=== PATIENT | female | born 1985 | race Two or more races ===

== ENCOUNTER 2025-03-14 18:25 | Emergency (ER) | payer OTHER ==
[~2025-03-14] VITALS: Ht 167.6 cm; Wt 58.9 kg
[2025-03-14 18:54] VITALS: BP 124/84; PULSE 92; RESP 17; TEMP 98.9; O2SAT 99
[2025-03-14] MEDS: cefTRIAXone SOD 1,000 MG VL IM ONE (19:18)
[2025-03-14] MEDS ORDERED: DOXY100C4 PO (19:21)
--- NOTE | 2025-03-14 19:21 | ED.PDOC ---
History of Present Illness(SKN HPI Comments 39-year-old female presents to the ED chief complaint right-sided facial abscess x6 days. Patient states last night she tried to pop it and let it drain she notes increasing swelling and pain. Denies fever, chills, nausea or vomiting. 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 Information Source: Patient Mode of Arrival: Ambulatory All Other Systems: Reviewed and Negative (See HPI) Physical Exam General Appearance: No Apparent Distress, Normal HEENT: Normal ENT Inspection, Pharynx Normal, TMs Normal Neck: Full Range of Motion, Non-Tender Respiratory: Lungs Clear, No Respiratory Distress, Normal Breath Sounds Cardiovascular: No Murmur, Normal Peripheral Pulses, Regular Rate/Rhythm Breast Exam: Deferred Gastrointestinal: Non Tender, Soft Genitalia: Deferred Pelvic: Deferred Rectal: Deferred Extremities: Normal capillary refill, Normal range of motion, Non-tender Musculoskeletal : Apperance: Normal Neurologic: Alert, No Motor Deficits, Normal Affect, Normal Mood, No Sensory Deficits Cerebellar Function: Normal Reflexes: NOT DONE Skin: Dry, Normal Color, Warm, Wounds (Approximate golf ball sized abscess to right temporal area with surrounding erythema, fluctuance, center puncture wound with no noted drainage warmth to touch no noted streaking) Lymphatic: No Adenopathy Was a procedure done? Was a procedure done?: Yes Sedation Sedation?: No Informed consent obtained: Yes Incision and Drainage Incision and Drainage: Abscess Location Right side of face temporal area Anesthetic: Lidocaine with Epi Preparation: Betadine Incision and Wound: Pus, Blood Informed consent obtained: Yes Risks/benefits/alt described: Yes Notes Process drained with 18 gauge needle patient tolerated rated well with minimal blood loss. Differential Diagnosis (INTG) Differential Diagnosis: Cellulitis, Hematoma, Insect Envenomation, Puncture Wound Differential Diagnosis: Abscess X-Ray, Labs, Meds, VS Vital Signs Date Time Temp Pulse Resp B/P (MAP) Pulse Ox O2 Delivery O2 Flow Rate FiO2 03/14/25 18:54 98.9 92 17 124/84 (97) 99 98.9 03/14/25 18:54 92 17 99 Room Air 03/14/25 18:26 97.9 78 18 158/102 96 97.9 Current Medications Medications (Trade) Dose Ordered Sig/Jenni Route Start Time Stop Time Status Last Admin Ceftriaxone Sodium (Rocephin) 1,000 mg ONCE ONCE IM 03/14/25 19:15 03/14/25 19:16 DC 03/14/25 19:18 X-Ray, Labs, Meds, VS Comment See procedure note Script trial of antibiotics. Advised to take medication as prescribed side effects discussed. Advised to follow up with his PCP in two days, urgent care, or back in the ER for wound re-evaluation. Advised to keep dressing on, and clean change twice daily. Patient was also advised to return to the ER for increasing pain, numbness, weakness, swelling, fever or chills. Patient indicates understanding and agrees with discharge plan of care. Time of 1ST Reevaluation: 18:33 Reevaluation 1ST: Unchanged Time of 2ND Reevaluation: 19:16 Reevaluation 2ND: Improved Patient Education/Counseling: Diagnosis, Treatment, Need For Follow Up Family Education/Counseling: No Family Present SEPSIS Sepsis Screen Date sepsis recognized/suspect: Mar 14, 2025 Time Sepsis recognized/suspect: 1827 Recent Procedure: No On Antibiotic Therapy: No Respiratory Rate >20: No Heart Rate >90: No Temp<36 C (96.8 F) or >38.3 C: No SBP <90 or MAP <65 mmHG: No New Acute Mental Status Change: No Is the patient on CPAP, BIPAP,: No Vital Signs Date Time Temp Pulse Resp B/P (MAP) Pulse Ox O2 Delivery O2 Flow Rate FiO2 03/14/25 18:54 98.9 92 17 124/84 (97) 99 98.9 03/14/25 18:54 92 17 99 Room Air 03/14/25 18:26 97.9 78 18 158/102 96 97.9 Medications Medications Dose Ordered Sig/Jenni Route Start Time Stop Time Status Last Admin Dose Admin Ceftriaxone Sodium 1,000 mg ONCE ONCE IM 03/14/25 19:15 03/14/25 19:16 DC 03/14/25 19:18 Departure 1 Departure Time of Disposition: 19:19 Impression: Primary Impression: Acute abscess of face Disposition: 01 HOME / SELF CARE / HOMELESS Condition: Stable e-Prescriptions Doxycycline Hyclate (Doxycycline Hyclate) 100 Mg Cap 100 MG PO BID for 7 Days, #14 CAP Prov: SALONI ALEXANDER 03/14/25 Discharged With: Self Critical Care Note Critical Care Time?: No Stability Stability form required: SALONI Cruz Mar 14, 2025 19:21
== END 2025-03-14 19:27 | disposition home or self-care (01) ==
LOC: ER 18:25
DX: L02.01 Cutaneous abscess of face (principal)
CPT/HCPCS: 10160; 96372; 99284; J0696; 10060